=== PATIENT | female | born 2000 | race Caucasian/White ===

== ENCOUNTER → 2024-02-03 06:33 | Day surgery (SDC) | payer OTHER, SELFPAY | LOC: GI 06:33 | PROVIDERS: ATTENDING PHYSICIAN Internal Medicine | DX: D50.9 Iron deficiency anemia, unspecified (principal); R12 Heartburn; K44.9 Diaphragmatic hernia without obstruction or gangrene; K22.89 Other specified disease of esophagus; K31.89 Other diseases of stomach and duodenum; Z87.19 Personal history of other diseases of the digestive system; Z09 Encounter for follow-up examination after completed treatment for conditions other than malignant neoplasm; K52.89 Other specified noninfective gastroenteritis and colitis | CPT/HCPCS: 43239; 45331; 88305; 88342 ==